=== PATIENT | male | born 1960 | race Caucasian/White ===

== ENCOUNTER → 2016-08-27 | Day surgery (SDC) | payer OTHER ==
[~2016-08-27] VITALS: Ht 175.3 cm; Wt 67.1 kg
[~2016-08-27] MED LIST: Dexamethasone Inj PF*Surgery use* 10 MG/ML VIAL IV ONE; GABAPENTIN300 MG ORAL; MEDROL4 MG ORAL; NAPROXEN500 M2 ORAL; NKM; PAMELOR25 MG ORAL
[2016-08-27 08:41] VITALS: BP 133/62
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
--- NOTE | 2016-08-27 09:11 | Pre-Procedure Note/Attestation ---
Pre-Procedure Note/Attestation Complete Prior to Procedure Planned Procedure: right Procedure Narrative: L5-S1 transforaminal lumbar epidural steroid injection under fluoroscopic guidance. Indications for Procedure Pre-Operative Diagnosis: lumbar disc displacement Attestation I attest that I discussed the nature of the procedure; its benefits; risks and complications; and alternatives (and the risks and benefits of such alternatives ), prior to the procedure, with the patient (or the patient's legal food products sales representative). I attest that, if there was a reasonable possibility of needing a blood transfusion, the patient (or the patient's legal food products sales representative) was given the [place] [employer] standardized written summary, pursuant to the Tito [place] Blood Safety Act ([place] Health and Safety Code # 1645, as amended). I attest that I re-evaluated the patient just prior to the surgery and that there has been no change in the patient's H&P, except as documented below: SEAN HIGHTOWER M.D. Aug 27, 2016 09:10
--- NOTE | 2016-08-27 09:36 | Brief Operative Note ---
Immediate Post Operative Note Operative Note Chief Complaint: lower back pain with right leg radiation Pre-op Diagnosis: lumbar disc displacement Procedure: right L5-S1 transforaminal epidural steroid injection Post-op Diagnosis: same Post-op Diagnosis: same as pre-op Findings: consistent w/pre-op dx studies Surgeon: Sean Daniels MD Film Booker: none Additional Surgeons: none Anesthesiologist: none Anesthesia: local Specimen: none Complications: none Condition: stable Fluids: none Estimated Blood Loss: none Drains: none Packing: none Tourniquet time: 0 - min Implant(s) used?: SEAN Rodney M.D. Aug 27, 2016 09:36
[2016-08-27 09:40] VITALS: BP 123/59
--- NOTE | 2016-08-27 09:40 | Discharge Summary ---
Discharge Summary Hospital Course Date of Admission 08/27/16 Date of Discharge 08/27/16 Admitting Diagnosis lumbar disc displacement with radiculopathy. Reason for Hospitalization: short stay for pain injection. DORINDA Jolly is a 56 year old male who was admitted on for Right Le Radiculopathy Consultations none Procedures Right L5-S1 transforaminal epidural steroid injection under fluoroscopic guidance. Hospital Course short stay Discharge Condition Upon Discharge: stable Discharge Disposition Patient was discharged to home. Discharge Diagnoses: (1) Lumbar disc herniation with radiculopathy Discharge Instructions Discharge Instructions Follow up with: Dr. Sean Hightower Diet: regular Activity: okay to shower For Surgical Patients Dressing Care: may change May shower: Yes Contact your physician for: bleeding, pain, tenderness, redness, swelling, yellowish discharge in the op. site SEAN HIGHTOWER M.D. Aug 27, 2016 09:40
[2016-08-27 09:50] VITALS: BP 120/62
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
== END | disposition home or self-care (01) ==
LOC: SUR 08:05
DX: M51.16 Intervertebral disc disorders with radiculopathy, lumbar region (principal)
CPT/HCPCS: 64483; Q9967